=== PATIENT | male | born 1965 | race Caucasian/White ===

== ENCOUNTER 2018-08-01 16:31 | Outpatient (REF) | payer BC, SELFPAY ==
[2018-08-01 19:08] LABS: BUN 21 mg/dL (7-18); CREATININE 1.12 mg/dL (0.70-1.30); Calcium 9.1 mg/dL (8.5-10.1); Chloride 101 mmol/L (98-107); Glucose 105 mg/dL (70-100); Potassium 3.8 mmol/L (3.5-5.1); Sodium 138 mmol/L (136-145)
== END 2018-08-01 16:51 ==
LOC: NCHCN 16:31
PROVIDERS: PCP Internal Medicine; Visit Provider Physician Assistant Medical
DX: I10 Essential (primary) hypertension (principal)
CPT/HCPCS: 80048

== ENCOUNTER 2021-12-30 18:55 | Outpatient (REF) | payer OTHER, SELFPAY ==
[2021-12-30 19:34] LABS: Abs Immature Grans 0.08 10^3/uL (0.0-0.06); Absolute Basophil Count 0.05 10^3/uL (0.0-0.2); Absolute Eosinophil Count 0.06 10^3/uL (0.0-0.7); Absolute Lymphocyte Count 1.83 10^3/uL (1.2-3.4); Absolute Monocyte Count 0.65 10^3/uL (0.1-0.8); Absolute Neutrophil Count 6.17 10^3/uL (1.2-6.7); Basophils % 0.6; Eosinophils % 0.7; HCT 45.9 % (40.0-50.0); HGB 16.2 g/dL (13.5-17.5); Immature Grans % 0.9; Lymphocytes % 20.7; MCH 32.2 pg (27.0-33.0); MCHC 35.3 % (32.0-36.0); MCV 91 fL (80-95); Monocytes % 7.4; Neutrophils % 69.7; Platelet Count 306 10^3/uL (130-400); RBC 5.03 10^6/uL (4.36-5.78); WBC 8.84 10^3/uL (4.4-10.8)
[2021-12-30 19:51] LABS: Anion Gap 11.3 mmol/L (3-11); BUN 22 mg/dL (7-18); CO2 29.7 mmol/L (21.0-32.0); CREATININE 1.3 mg/dL (0.70-1.30); Calcium 8.8 mg/dL (8.5-10.1); Chloride 97 mmol/L (98-107); Estimated GFR 57.53 (mL/min/1.73m2); Glucose 115 mg/dL (74-106); Potassium 3.6 mmol/L (3.5-5.1); Sodium 138 mmol/L (136-145)
== END 2021-12-30 18:56 | disposition home or self-care (01) ==
LOC: NCHCN 18:55
PROVIDERS: PCP Internal Medicine; Visit Provider Nurse Practitioner Family
DX: R53.83 Other fatigue (principal); R50.9 Fever, unspecified
CPT/HCPCS: 80048; 85025

== ENCOUNTER 2022-01-16 17:50 | Outpatient (REF) | payer OTHER, SELFPAY ==
[2022-01-16 19:00] LABS: ALT 94 U/L (16-63); AST 46 U/L (15-37); Albumin 3.8 g/dL (3.4-5.0); Alkaline Phosphatase 81 U/L (46-116); Anion Gap 8.3 mmol/L (3-11); BUN 17 mg/dL (7-18); Bilirubin, Total 0.3 mg/dL (0.2-1.0); CO2 27.7 mmol/L (21.0-32.0); CREATININE 1.2 mg/dL (0.70-1.30); Calcium 8.5 mg/dL (8.5-10.1); Calculated LDL 162 mg/dL (<100); Chloride 104 mmol/L (98-107); Cholesterol 232 mg/dL (<200); Glucose 103 mg/dL (74-106); HDL Cholesterol 42 mg/dL (40-60); Potassium 4.5 mmol/L (3.5-5.1); Sodium 140 mmol/L (136-145); Total Protein 7.1 g/dL (6.4-8.2); Triglyceride 144 mg/dL (<150)
[2022-01-16 19:04] LABS: Hemoglobin A1C 5.6 % (<5.7)
== END 2022-01-16 17:51 | disposition home or self-care (01) ==
LOC: NCHCN 17:50
PROVIDERS: PCP Internal Medicine; Visit Provider Physician Assistant
DX: I10 Essential (primary) hypertension (principal); E78.5 Hyperlipidemia, unspecified; Z13.1 Encounter for screening for diabetes mellitus; Z83.3 Family history of diabetes mellitus
CPT/HCPCS: 80053; 80061; 83036

== ENCOUNTER 2022-02-05 16:45 | Outpatient (REF) | payer OTHER, SELFPAY ==
[2022-02-05 19:41] LABS: Iron 101 ug/dL (65-175); Total Iron Binding Capacity 364 ug/dL (250-450); Transferrin Sat 28 % (20-55)
[2022-02-05 19:54] LABS: Ferritin 413 ng/mL (26-388)
[2022-02-09 10:19] LABS: Hepatitis C Ab w Rflx HCV PCR Negative (Negative)
[2022-02-09 10:46] LABS: HBs Antibody, Quant <3.1 mIU/mL (See Note); Hepatitis B Surface Ab Negative (See Note)
[2022-02-09 10:55] LABS: Hepatitis B Surface Ag Negative (Negative)
== END 2022-02-05 16:46 | disposition home or self-care (01) ==
LOC: NCHCN 16:45
PROVIDERS: PCP Internal Medicine; Visit Provider Physician Assistant
DX: K76.0 Fatty (change of) liver, not elsewhere classified (principal); R74.8 Abnormal levels of other serum enzymes
CPT/HCPCS: 86706; 86803; 87340; 82728; 83540; 83550

== ENCOUNTER 2023-01-20 17:26 | Outpatient (REF) | payer OTHER, SELFPAY ==
[2023-01-20 20:28] LABS: HCT 48.5 % (40.0-50.0); HGB 17.2 g/dL (13.5-17.5); MCH 31.8 pg (27.0-33.0); MCHC 35.5 % (32.0-36.0); MCV 90 fL (80-95); MPV 10.1 fL (8.0-11.0); Platelet Count 321 10^3/uL (130-400); RBC 5.41 10^6/uL (4.36-5.78); RDW 11.9 % (11.8-14.1); RDW-SD 38.3 fL; WBC 10.93 10^3/uL (4.4-10.8)
[2023-01-20 20:55] LABS: ALT 131 U/L (16-63); AST 71 U/L (15-37); Albumin 4.1 g/dL (3.4-5.0); Alkaline Phosphatase 90 U/L (46-116); Anion Gap 9.3 mmol/L (3-11); BUN 12 mg/dL (7-18); Bilirubin, Total 0.5 mg/dL (0.2-1.0); CO2 30.7 mmol/L (21.0-32.0); CREATININE 1.2 mg/dL (0.70-1.30); Calcium 9.5 mg/dL (8.5-10.1); Chloride 97 mmol/L (98-107); Estimated GFR 71.42 (mL/min/1.73m2); Glucose 103 mg/dL (74-106); Potassium 3.8 mmol/L (3.5-5.1); Sodium 137 mmol/L (136-145)
== END 2023-01-20 17:27 | disposition home or self-care (01) ==
LOC: NCHCN 17:26
PROVIDERS: PCP Internal Medicine; Visit Provider Physician Assistant
DX: K76.0 Fatty (change of) liver, not elsewhere classified (principal); I10 Essential (primary) hypertension
CPT/HCPCS: 80053; 85027

== ENCOUNTER 2023-04-21 18:38 | Outpatient (REF) | payer OTHER, SELFPAY ==
[2023-04-21 20:20] LABS: Bacteria Rare HPF (Negative); Casts Negative LPF (Negative); Crystals Negative HPF (Negative); Epithelial Cells Negative HPF (Negative); Mucus Negative (Negative); WBC Negative HPF (0-5)
[2023-04-21 20:21] LABS: C & S Indicated? No
== END 2023-04-21 18:39 | disposition home or self-care (01) ==
LOC: NCHCN 18:38
PROVIDERS: PCP Physician Assistant; Visit Provider Physician Assistant
DX: R31.9 Hematuria, unspecified (principal)
CPT/HCPCS: 81015

== ENCOUNTER 2024-04-20 19:15 | Outpatient (REF) | payer OTHER, SELFPAY ==
[2024-04-20 19:13] LABS: Abs Immature Grans 0.04 10^3/uL (0.0-0.06); Absolute Basophil Count 0.07 10^3/uL (0.0-0.2); Absolute Eosinophil Count 0.15 10^3/uL (0.0-0.7); Absolute Lymphocyte Count 2.75 10^3/uL (1.2-3.4); Absolute Monocyte Count 0.76 10^3/uL (0.1-0.8); Absolute Neutrophil Count 6.36 10^3/uL (1.2-6.7); Basophils % 0.7 %; Eosinophils % 1.5 %; HCT 45.9 % (40.0-50.0); HGB 15.8 g/dL (13.5-17.5); Immature Grans % 0.4 %; Lymphocytes % 27.1 %; MCH 31.1 pg (27.0-33.0); MCHC 34.4 % (32.0-36.0); MCV 90 fL (80-95); MPV 9.8 fL (8.0-11.0); Monocytes % 7.5 %; Neutrophils % 62.8 %; Platelet Count 312 10^3/uL (130-400); RBC 5.08 10^6/uL (4.36-5.78); RDW-SD 36.7 fL; WBC 10.13 10^3/uL (4.4-10.8)
[2024-04-20 19:34] LABS: ALT 55 U/L (16-63); AST 35 U/L (15-37); Alkaline Phosphatase 80 U/L (46-116); Anion Gap 7.4 mmol/L (3-11); BUN 16 mg/dL (7-18); CO2 30.6 mmol/L (21.0-32.0); CREATININE 1.2 mg/dL (0.70-1.30); Calcium 9.4 mg/dL (8.5-10.1); Chloride 102 mmol/L (98-107); Estimated GFR 70.98 (mL/min/1.73m2); Glucose 86 mg/dL (74-106); LDL CHOLESTEROL 155 mg/dL (<100); Potassium 4.4 mmol/L (3.5-5.1); Sodium 140 mmol/L (136-145); Total Protein 7.8 g/dL (6.4-8.2)
== END 2024-04-20 19:16 | disposition home or self-care (01) ==
LOC: NCHCN 19:15
PROVIDERS: PCP Physician Assistant; Visit Provider Physician Assistant
DX: K76.0 Fatty (change of) liver, not elsewhere classified (principal); E78.5 Hyperlipidemia, unspecified
CPT/HCPCS: 80053; 83721; 85025

== ENCOUNTER 2025-04-24 17:16 | Outpatient (REF) | payer OTHER, SELFPAY ==
[2025-04-24 19:36] LABS: Abs Immature Grans 0.06 10^3/uL (0.0-0.06); HCT 48.2 % (40.0-50.0); HGB 16.8 g/dL (13.5-17.5); Immature Grans % 0.5 %; MCH 29.2 pg (27.0-33.0); MCHC 34.9 % (32.0-36.0); MCV 84 fL (80-95); MPV 9.9 fL (8.0-11.0); Platelet Count 385 10^3/uL (130-400); RBC 5.76 10^6/uL (4.36-5.78); RDW 12.0 % (11.8-14.1); RDW-SD 36.3 fL; WBC 13.13 10^3/uL (4.4-10.8)
[2025-04-24 19:57] LABS: C & S Indicated? No; WBC Negative HPF (0-5)
[2025-04-24 20:12] LABS: ALT 57 U/L (16-63); AST 42 U/L (15-37); Albumin 3.9 g/dL (3.4-5.0); Alkaline Phosphatase 104 U/L (46-116); Anion Gap 9.7 mmol/L (3-11); BUN 14 mg/dL (7-18); Bilirubin, Total 0.6 mg/dL (0.2-1.0); CO2 27.3 mmol/L (21.0-32.0); Calcium 8.9 mg/dL (8.5-10.1); Chloride 98 mmol/L (98-107); Cholesterol 212 mg/dL (<200); Glucose 99 mg/dL (74-106); HDL Cholesterol 34 mg/dL (>or=40); Potassium 4.0 mmol/L (3.5-5.1); Sodium 135 mmol/L (136-145); TSH (W/Ref FT4) 1.93 uIU/mL (0.36-3.74); Total Protein 8.1 g/dL (6.4-8.2)
== END 2025-04-24 17:17 | disposition home or self-care (01) ==
LOC: NCHCN 17:16
PROVIDERS: PCP Physician Assistant; Visit Provider Physician Assistant
DX: R00.0 Tachycardia, unspecified (principal); R31.9 Hematuria, unspecified; E78.5 Hyperlipidemia, unspecified; K76.0 Fatty (change of) liver, not elsewhere classified
CPT/HCPCS: 80053; 80061; 81015; 84443; 85025